=== PATIENT | male | born 1940 | race Caucasian/White ===

== ENCOUNTER 2016-11-15 14:46 | Inpatient (IN) | payer MEDICARE ==
[2016-11-15 15:44] LABS: Hematocrit 37 % (42-52); Hemoglobin 12.1 g/dl (14.0-18.0); Mean Corpuscular HGB Conc 33 g/dl (31-36); Mean Corpuscular Hemoglobin 31 pg (27-31); Mean Corpuscular Volume 95 fL (80-94); Mean Platelet Volume 9 um3 (7.4-10.4); Red Blood Count 3.91 10^6/ul (4.0-5.4); Red Cell Distribution Width 16 % (10.5-15); White Blood Count 9.1 10^3/ul (3.5-10.8)
[2016-11-15] MEDS ORDERED: methylPREDNISolone 125 MG* 2 ML VIAL IV ONE (15:45)
[2016-11-15] MEDS ORDERED: Albuterol/Ipratropium NEB.SOL* Albuterol 2.5 MG/Ipratropium 0.5 MG 3 ML INH ONE (15:45)
[2016-11-15 15:47] LABS: Add Diff/Slide Review? Slide Review Added; Comments Flag Yes
--- NOTE | 2016-11-15 15:47 | RAD ---
HISTORY: Shortness of breath COMPARISONS: August 16, 2010 VIEWS:1: Single frontal portable view of the chest at 3:22 PM. Evaluation is somewhat limited by head positioning. FINDINGS: LINES AND TUBES: None. CARDIOMEDIASTINAL SILHOUETTE: The cardiomediastinal silhouette is normal for portable technique. PLEURA: The costophrenic angles are sharp. No pleural abnormalities are noted. LUNG PARENCHYMA: There is hyperinflation. ABDOMEN: The upper abdomen is clear. There is no subphrenic gas. BONES AND SOFT TISSUES: No bone or soft tissue abnormalities are noted. IMPRESSION: COPD. NO ACTIVE CARDIOPULMONARY DISEASE.
[2016-11-15 16:00] LABS: ALT 44 U/L (7-52); AST 48 U/L (13-39); Albumin 3.2 g/dL (3.2-5.2); Alkaline Phosphatase 257 U/L (34-104); BUN/Creatinine Ratio 22.7 (8-20); Blood Urea Nitrogen 17 mg/dL (6-24); CO2 Carbon Dioxide 40 mmol/L (22-32); Calcium 9.4 mg/dL (8.6-10.3); Chloride 92 mmol/L (101-111); EGFR African American 130.9 (>60); EGFR Non-African American 101.8 (>60); Globulin 3.5 g/dL (2-4); Glucose 104 mg/dL (70-100); Sodium 131 mmol/L (133-145); Total Protein 6.7 g/dL (6.4-8.9)
[2016-11-15 16:02] LABS: Troponin I 0.01 ng/mL (<0.04)
[2016-11-15] MEDS ORDERED: Iodixanol* (CONTRAST) 320 MG/ML 100 ML SDV IV ONE (16:15)
[2016-11-15] MEDS ORDERED: metFORMIN* 500 MG TAB PO SCH (17:00)
[2016-11-15] MEDS ORDERED: Albuterol/Ipratropium NEB.SOL* Albuterol 2.5 MG/Ipratropium 0.5 MG 3 ML INH SCH ×2 (17:00→19:00)
--- NOTE | 2016-11-15 17:07 | RAD ---
HISTORY: Shortness of breath COMPARISONS: October 27, 2016, October 08, 2016 TECHNIQUE: Multiple contiguous axial CT scans of the chest were obtained after the administration of nonionic intravenous contrast, timed to the pulmonary arterial phase of contrast enhancement.. Coronal and sagittal multiplanar reformations are also submitted for review. FINDINGS: Evaluation is limited by suboptimal contrast opacification. Attenuation of the main pulmonary artery is between 202 150 axial units which is of But diagnostic quality for the detection of pulmonary embolism.. NECK AND THYROID: The lower neck and thyroid are unremarkable. CHEST WALL: There is no lower cervical, axillary, or supraclavicular lymphadenopathy by size criteria. HEART AND PERICARDIUM: The heart is unremarkable. AORTA AND PULMONARY VASCULATURE: There is ulcerated atheromatous plaque of the aortic arch. There is no pulmonary arterial filling defect to suggest pulmonary was. Evaluation is limited by suboptimal contrast opacification of the pulmonary arteries. MEDIASTINUM: There is no mediastinal lymphadenopathy by size criteria. CHELI: There is no hilar lymphadenopathy by size criteria. AIRWAY AND ESOPHAGUS: The airway is unremarkable, without endobronchial filling defect. The esophagus is grossly normal. LUNG PARENCHYMA: There is a 0.5 cm nodule of the superior segment of the left lower lobe. There is less opacification of the superior segment of the right lower lobe. This is similar to the previous examination. PLEURA: No pleural abnormalities are noted. UPPER ABDOMEN: Multiple gallstones are noted. 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 OTHER: None. IMPRESSION: 1. LIMITED STUDY. 2. NO PULMONARY ARTERIAL FILLING DEFECT TO SUGGEST PULMONARY EMBOLISM. 3. ATHEROMATOUS DISEASE. 4. AGAIN NOTED IS OSSEOUS METASTATIC DISEASE. 5. AGAIN NOTED IS A PULMONARY NODULE OF THE LEFT UPPER LOBE WITH GROUNDGLASS OPACIFICATION OF THE SUPERIOR SEGMENT OF THE RIGHT LOWER LOBE. 6. AGAIN NOTED IS RIGHT-SIDED HYDRONEPHROSIS
[2016-11-15] MEDS ORDERED: fentaNYL PATCH 75 MCG/HR* 75 MCG TRANSDERM SCH (18:30)
[2016-11-15] MEDS: Gabapentin CAP(*) 300 MG PO SCH ×2 (18:31→21:14)
[2016-11-15] MEDS: Enoxaparin(*) 40 MG/0.4 ML SYR SUBCUT SCH (18:34)
[2016-11-15] MEDS: fentaNYL Patch Check Q Shift 1 NOTE SCH (19:15)
[2016-11-15] MEDS: traZODone TAB* 100 MG PO SCH (21:14)
--- NOTE | 2016-11-15 22:03 | HP ---
ADMISSION HISTORY AND PHYSICAL: DATE OF ADMISSION: 11/15/16 REASON FOR ADMISSION: Respiratory distress. 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 He now presents with increasing shortness of breath over the last few days, without associated cough , sputum production, or chest pain. Portable chest film in the ED was unrevealing. The patient does have a longstanding history of smoking, and carries a diagnosis of COPD. There is no history of thromboembolism, and a CT angiogram of the chest did not reveal evidence of pulmonary emboli Because the patient required high-flow nasal O2 to reduce his sense of dyspnea, he was admitted to the intensive care unit. Arterial O2 saturation was 100% on admission to the ICU. OUTPATIENT MEDICATIONS: 1. Metformin 500 mg p.o. q.a.m. 2. Fentanyl patch 75 mcg. 3. Lisinopril 10 mg daily. 4. Gabapentin 300 mg 3 times daily. 5. Celexa 20 mg daily. 6. Advair Diskus 1 puff daily. 7. Dilaudid 4 mg p.o. q.6 h. p.r.n. pain. 8. Ventolin inhaler 2 puffs q.4 hours p.r.n. ALLERGIES: Diphenhydramine, which produces agitation, is listed as a drug allergy (?) REVIEW OF SYSTEMS: Noncontributory. PHYSICAL EXAMINATION GENERAL: The patient was alert, oriented and tachypneic. VITAL SIGNS: Temp 98.8, blood pressure 112/77, heart rate 90 and regular, respirations 26, O2 sat 100%. HEENT: There was no facial asymmetry. Oropharynx was clear. NECK: Supple. There were no masses. LUNGS: Coarse rhonchi, but no crackles or wheezes. CARDIAC: No murmurs, rubs, or gallops. ABDOMEN: Nondistended and nontender. EXTREMITIES: Cool but not cyanotic or edematous. DIAGNOSTIC STUDIES/LAB DATA: White count was normal at 9.1, hemoglobin 12.1, hematocrit 37, platelets 175. Electrolytes were normal except for a potassium of 5.0 and a bicarb of 40. BUN and creatinine were normal. Random glucose is 104. Alkaline phosphatase is 257, other liver enzymes were normal. BNP was 87. Chest x-ray showed clear lung finnegan and no cardiomegaly. EKG revealed a normal sinus rhythm with no acute ST or T-wave changes. OVERALL IMPRESSION: Respiratory distress probably secondary to chronic obstructive pulmonary disease. Admission bicarbonate of 40 suggested the patient may be a chronic CO2 retainer. There is no evidence for infection or thromboembolic disease. Since the patient has had recent radiation, it is possible that this is adding to his symptomatology. MANAGEMENT PLAN: Will continue home medications and attempt to wean down the high flow O2 requirement. Chi not start antibiotics because index of suspicion for infection is low. Prognosis is very guarded at this time. The patient is a DNR and DNI per his wishes, and appropriate forms have been signed. CRITICAL CARE TIME: 45 minutes. [id number] #: [id number] MTDD
[2016-11-16] MEDS: Albuterol/Ipratropium NEB.SOL* Albuterol 2.5 MG/Ipratropium 0.5 MG 3 ML INH SCH ×4 (00:50→19:28)
[2016-11-16] MEDS: HYDROmorphone TAB* 4 MG PO PRN ×2 (02:23→10:18)
[2016-11-16] MEDS ORDERED: ALPRAZolam TAB* 0.5 MG PO PRN (02:30)
[2016-11-16] MEDS ORDERED: ALPRAZolam TAB* 0.5 MG ONE (02:39)
[2016-11-16] MEDS: fentaNYL Patch Check Q Shift 1 NOTE SCH ×2 (07:00→19:24)
[2016-11-16 08:49] LABS: Hematocrit 35 % (42-52); Hemoglobin 11.4 g/dl (14.0-18.0); Mean Corpuscular HGB Conc 33 g/dl (31-36); Mean Corpuscular Hemoglobin 31 pg (27-31); Mean Corpuscular Volume 95 fL (80-94); Mean Platelet Volume 9 um3 (7.4-10.4); Red Blood Count 3.68 10^6/ul (4.0-5.4); Red Cell Distribution Width 16 % (10.5-15); White Blood Count 6.6 10^3/ul (3.5-10.8)
[2016-11-16] MEDS ORDERED: Citalopram TAB* 20 MG PO SCH (09:00)
[2016-11-16] MEDS ORDERED: Famotidine TAB* 20 MG PO SCH (09:00)
[2016-11-16] MEDS ORDERED: Lisinopril TAB* 10 MG PO SCH (09:00)
[2016-11-16 09:05] LABS: BUN/Creatinine Ratio 20.3 (8-20); Calcium 9.1 mg/dL (8.6-10.3); EGFR African American 123.3 (>60); EGFR Non-African American 95.9 (>60); Potassium 5.3 mmol/L (3.5-5.0)
[2016-11-16] MEDS: Gabapentin CAP(*) 300 MG PO SCH ×4 (09:18→21:56)
[2016-11-16] MEDS: Morphine INJ* 4 MG/ML 1 ML SYRINGE IV PRN ×4 (17:19→22:35)
[2016-11-16] MEDS: Enoxaparin(*) 40 MG/0.4 ML SYR SUBCUT SCH (17:32)
[2016-11-16] MEDS ORDERED: Morphine INJ* 4 MG/ML 1 ML SYRINGE IV ONE (20:12)
--- NOTE | 2016-11-16 20:55 | PN ---
Critical Care Services: Increasing dyspnea through the day - now on morphine and ativan (PRN) - family is considering whether to begin "comfort measures care" Vital Signs: Temp Pulse Resp BP SpO2 FiO2 97.1 F 96 16 102/61 93 50 Physical Exam: Gen:Somnolent but arousable and very tachypneic, with use of accessory muscles Lungs:coarse rhonchi throughout Extremities: cool. No cyanosis or edema Fluid Balance (Past 24 Hours): 11/16/16 06:59 Intake Total 1323 Output Total 300 Balance 1023 Weight 182 lb 12.211 oz Intake: IV Fluids 803 Lactated Ringer's 803 Oral 520 Output: Urine 300 Other: Estimated Void Medium # Bowel Movements 1 Estimated Stool Amount Large # Voids 1 Labs: 11/16/16 11/16/16 08:45 08:45 WBC 6.6 Hgb 11.4 L Hct 35 L MCV 95 H MCH 31 MCHC 33 RDW 16 H Plt Count 186 Sodium 136 Potassium 5.3 Chloride 91 L Carbon Dioxide 41 Anion Gap 4 BUN 16 Creatinine 0.79 Glucose 94 Studies: None today Nutrition: Oral diet Impression: Progressive deterioration on clinicl status seems to be irreversible. Plan: Use morphine and benzodiazepines for comfort. Family at bedside. This is likely to be a terminal situation, and family is aware.
[2016-11-16] MEDS: traZODone TAB* 100 MG PO SCH (21:56)
[2016-11-16] MEDS: LORazepam INJ* 2 MG/ML 1 ML VIAL IV PUSH PRN (22:55)
[2016-11-17] MEDS: Morphine INJ* 4 MG/ML 1 ML SYRINGE IV PRN ×3 (00:40→04:51)
[2016-11-17] MEDS: LORazepam INJ* 2 MG/ML 1 ML VIAL IV PUSH PRN (01:52)
[2016-11-17] MEDS ORDERED: LORazepam INJ* 2 MG/ML 1 ML VIAL IV PUSH PRN (02:00)
[2016-11-17] MEDS: Albuterol/Ipratropium NEB.SOL* Albuterol 2.5 MG/Ipratropium 0.5 MG 3 ML INH SCH (02:08)
[2016-11-17 05:04] VITALS: BP 110/74
[2016-11-17] MEDS ORDERED: Gabapentin CAP(*) 300 MG PO SCH (09:00)
--- NOTE | 2016-11-17 11:28 | DS ---
CC: Dr. Milton Elkins, Oncology * SUMMARY: DATE OF ADMISSION: 11/15/16 DATE OF DEMISE: 11/17/16 HOSPITAL COURSE: This patient is a 76-year-old white male with recently diagnosed bladder carcinoma, metastatic to bone (ribs and spine), who was admitted on 11/15/16 for increasing shortness of breath, felt secondary to exacerbation of COPD. The patient was admitted to the intensive care unit and was given morphine and benzodiazepines to relieve the sense of dyspnea. There was no evidence of infection, so antibiotics were not initiated. The patient was a [id number] and [id number] per his request; and, on the day following admission, the decision was made to provide comfort measures only. This was achieved with intravenous morphine and benzodiazepines; and, at 5:59 a.m., on 11/17/16, the patient was pronounced . Family was present at the time and an autopsy was denied. FINAL DIAGNOSES: 1. Exacerbation of chronic obstructive pulmonary disease. 2. Bladder carcinoma, metastatic to bone. [id number] #: [id number] MTDD
[2016-11-17] MEDS ORDERED: traZODone TAB* 100 MG PO SCH (21:00)
== END 2016-11-17 05:59 | disposition expired | DRG 191 ==
LOC: ED 14:46 → ICU 15:59
PROVIDERS: ADMIT Internal Medicine Critical Care Medicine; ATTEND Hospitalist
DX: J44.1 Chronic obstructive pulmonary disease with (acute) exacerbation (principal); C79.51 Secondary malignant neoplasm of bone; R06.00 Dyspnea, unspecified; C67.9 Malignant neoplasm of bladder, unspecified; Z66 Do not resuscitate; F17.210 Nicotine dependence, cigarettes, uncomplicated; Z79.899 Other long term (current) drug therapy; Z88.8 Allergy status to other drugs, medicaments and biological substances
CPT/HCPCS: 36415; 71010; 71275; 80048; 80053; 83605; 83880; 84484; 85025; 85027; 87040; 87641; 93005; 94003; 94640; 94760; A9270-GY; J1650; J2060; J2270; J2930; Q9967